=== PATIENT | male | born 1945 | race Caucasian/White ===

== ENCOUNTER → 2016-09-05 | Outpatient (CLI) | payer MEDICARE ==
[2016-09-04 10:03] LABS: HEMATOCRIT 21.3 % (37.9-51.0); MEAN CORPUSCULAR HEMOGLOBIN 31.6 pg (27.0-33.4); MEAN CORPUSCULAR HGB CONC 33.2 g/dL (32.0-36.0); MEAN CORPUSCULAR VOLUME 95 fl (80-97); RED BLOOD COUNT 2.24 10^6/uL (4.35-5.55); RED CELL DISTRIBUTION WIDTH 18.3 % (11.5-14.0)
[2016-09-04 10:41] LABS: BAND NEUTROPHILS % (MANUAL) 3 % (3-5); BASOPHILS % (MANUAL) 0 % (0-2); EOSINOPHILS % (MANUAL) 1 % (0-6); LYMPHOCYTES % (MANUAL) 6 % (13-45); TOTAL CELLS COUNTED 100
[2016-09-04 10:42] LABS: POLYCHROMASIA 1+; TOXIC GRANULATION 1+
[2016-09-04 10:43] LABS: ANISOCYTOSIS 1+
[2016-09-04 10:44] LABS: HEMOGLOBIN 7.1 g/dL (13.5-17.0)
== END ==
LOC: II 09-04 09:55 → LAB 09-04 09:55 → EDSTATUS 09-04 11:52 → II 11:52 → LAB 11:52
PROVIDERS: ATTEND Internal Medicine
DX: Z51.11 Encounter for antineoplastic chemotherapy (principal); C21.0 Malignant neoplasm of anus, unspecified
CPT/HCPCS: 85025

== ENCOUNTER → 2016-09-20 | Outpatient (CLI) | payer MEDICARE | LOC: OD 10:56 | PROVIDERS: ATTEND Specialist | DX: D64.9 Anemia, unspecified (principal) ==

== ENCOUNTER 2016-10-09 10:22 | Outpatient (CLI) | payer MEDICARE ==
[~2016-10-09 10:22] MED LIST: ACETAMINOPHEN 325 MG TABLET PO PRN; DIPHENHYDRAMINE HCL 25 MG CAPSULE PO PRN; FUROSEMIDE INJ/PF 20 MG/2 ML SDV IV PRN; NORMAL SALINE 1000 ML 1,000 ML IV PRN
[2016-10-09 10:53] LABS: HEMATOCRIT 24.6 % (37.9-51.0); HEMOGLOBIN 8.6 g/dL (13.5-17.0); HGB HCT DIFFERENCE 1.2; MEAN CORPUSCULAR HEMOGLOBIN 31.9 pg (27.0-33.4); MEAN CORPUSCULAR HGB CONC 34.9 g/dL (32.0-36.0); MEAN CORPUSCULAR VOLUME 91 fl (80-97); RED CELL DISTRIBUTION WIDTH 16.3 % (11.5-14.0); WHITE BLOOD COUNT 10.3 10^3/uL (4.0-10.5)
[2016-10-09 18:47] VITALS: BP 137/54
== END 2016-10-09 19:00 | disposition home or self-care (01) ==
LOC: II 10:22 → 2N 10:23 → II 19:00
PROVIDERS: ATTEND Specialist
PROC: 30233N1 Transfusion of Nonautologous Red Blood Cells into Peripheral Vein, Percutaneous Approach (ICD-10-PCS; principal; 2016-10-09)
DX: D64.9 Anemia, unspecified (principal); Z85.048 Personal history of other malignant neoplasm of rectum, rectosigmoid junction, and anus
CPT/HCPCS: 86900; 86901; 36415; 36430; 86850; 86920; P9016; A9270 ×2; J1940; J7030

== ENCOUNTER → 2016-12-15 | Outpatient (CLI) | payer MEDICARE ==
--- NOTE | 2016-12-15 15:24 | RADIOLOGY REPORT (SQ) ---
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 Axial images of the pelvis. FINDINGS: Patient completed radiotherapy in September 2015 for anal malignancy. We were unable to give IV contrast for today's study because of the patient's renal function. Prior MRI 07/26/2015 demonstrated a large anal lesion measuring 7 cm craniocaudad by 3.1 cm AP x 2.6 cm transverse, with diffuse wall thickening of the anal wall, up to 2 cm in thickness. On today's stud y, the bulk of the original tumor is significantly smaller. At the site of the thickest circumferent ial tumor on the pretreatment images, tumor thickness along the anal wall now measures 7 mm. In the area of prior treatment, the posterior wall of the anus and rectum is indistinct, and may be necrotic . Along the superior aspect of the radiation treatment field, there is some circumferential distal sigm oid/upper rectum wall thickening 1 cm in thickness, tumor recurrence in this area could not be exclud ed At the inferior aspect of the radiation field, there is an anal nodule along the anterior wall, 2 x 1 .2 cm in size which may represent tumor recurrence, best shown on axial image 26. There is loss of discrete fat planes between the distal sigmoid colon/rectum and the sacrum, with den se fibrosis which is dark on T1 and T2 weighted images. The adjacent sacrum exhibits abnormal decrea sed T1 and increased T2 marrow signal with few possible air bubbles present. Findings are worrisome for all radiation necrosis of the sacrum versus infection/osteomyelitis. There is extensive pelvic muscle edema, along the bilateral iliacus, bilateral piriformis, bilateral obturator internus and externus, and inferior aspect of the gluteal muscles. There is a new focus of bony sclerosis in the right symphysis pubis on axial image 18 which could be a bony sclerotic metastatic lesion. This measures 10 mm in diameter. No iliac chain adenopathy. Previously biopsied 2 cm right inguinal lymph node with biopsy clip is sl ightly larger than on biopsy imaging 06/23/2016. There is a Campbell catheter draining the bladder. Bladder is decompressed around a Campbell catheter. Pr ostate transitional zone is heterogeneous likely from hypertrophy. These results were discussed with Dr. Huerta IMPRESSION: Post therapeutic changes in the deep pelvis with decrease in tumor bulk along the anal/r ectal region as compared to 07/26/2015. However, there is now abnormal wall thickening and luminal azul rowing just superior to the treatment field in the distal sigmoid/rectum, and a small nodule at the a nal orifice worrisome for tumor recurrence. Indistinct posterior wall of the anus and rectum in the area of prior treatment. Adjacent fibrosis a nd decreased signal of the presacral fat with abnormal marrow signal in the adjacent sacrum. Finding s could either reflect radiation necrosis or infection Abnormal diffuse muscle edema New sclerotic focus in the right symphysis pubis worrisome for sclerotic bony metastatic lesion TECHNICAL DOCUMENTATION: JOB ID: [id number] [employer]- All Rights Reserved
== END ==
LOC: RAD 12-12 14:48
PROVIDERS: ATTEND Specialist
DX: C21.0 Malignant neoplasm of anus, unspecified (principal)
CPT/HCPCS: 72195

== ENCOUNTER → 2017-02-25 | Outpatient (CLI) | payer MEDICARE ==
--- NOTE | 2017-02-26 08:52 | RADIOLOGY REPORT (SQ) ---
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 RADIONUCLIDE AND DOSE: 12.0 mCi F18 FDG The route of agent administration: Intravenous FASTING BLOOD SUGAR: 138 mg/dl CONTRAST TYPE AND DOSE: No CT contrast given. TECHNIQUE: Blood glucose level was verified. Above dose of FDG was injected intravenously. 2-D seg mented attenuation correction images were obtained from the base of the skull to the midthighs. Nonc ontrast CT images were obtained for attenuation correction and fusion with emission images. CT image s were performed without oral or intravenous contrast and are not sensitive for parenchymal lesions. A series of overlapping emission PET images were obtained. Images reviewed and manipulated at [facility] work station by the radiologist. Images stored on PACS. LIMITATIONS: None. FINDINGS: HEAD AND NECK: No areas of abnormal metabolic activity in the soft tissues of the head and neck. CHEST: No areas of abnormal metabolic activity in the chest. ABDOMEN AND PELVIS: There is increasing circumferential soft tissue in the rectum with increasing sof t tissue in the presacral region. SUV values range from 5.91 to 7.13. There is gas extending mold mover iorly in the presacral space with local bony destruction of the adjacent distal sacrum. Right inguin al lymph node has increased in size and density, measuring 2 cm with mean SUV value 3.65. There is a central biopsy clip. PROXIMAL LOWER EXTREMITIES: No areas of abnormal metabolic activity in the soft tissues of the lower extremities. BONES: In addition to findings in the sacrum there is focal lytic change in the posterior L5 vertebra l body. Mean SUV value 5.93. ADDITIONAL CT FINDINGS: No additional significant findings on the noncontrast CT images. OTHER: No other significant findings. IMPRESSION: 1. EVIDENCE OF LOCAL RECURRENCE OF TUMOR IN THE LOWER RECTUM WITH SOFT TISSUE EXTENDING INTO THE PRES ACRAL SPACE. THERE IS AN AREA OF GAS EXTENDING INTO THE PRESACRAL SPACE WITH FOCAL DESTRUCTION OF TH E ADJACENT DISTAL SACRUM. THIS COULD REPRESENT PROGRESSIVE TUMOR WITH AREAS OF NECROSIS ALTHOUGH INF ECTIOUS ETIOLOGY WITH OSTEOMYELITIS IS NOT EXCLUDED. 2. LYTIC LESION IN THE POSTERIOR L5 VERTEBRAL BODY CONSISTENT WITH BONY METASTASIS. 3. RIGHT INGUINAL LYMPH NODE CONSISTENT WITH METASTATIC INVOLVEMENT. TECHNICAL DOCUMENTATION: JOB ID: [id number] [employer]- All Rights Reserved
== END ==
LOC: RAD 16:04
PROVIDERS: ATTEND Internal Medicine
DX: C21.0 Malignant neoplasm of anus, unspecified (principal)
CPT/HCPCS: 78815; A9552

== ENCOUNTER 2017-05-02 12:13 | Outpatient (CLI) | payer MEDICARE ==
[~2017-05-02 12:13] MED LIST changes: -NORMAL SALINE 1000 ML 1,000 ML IV PRN
[2017-05-02] MEDS ORDERED: NORMAL SALINE 250 ML IV PRN (12:47)
[2017-05-02 13:44] LABS: HEMATOCRIT 21.6 % (37.9-51.0); HGB HCT DIFFERENCE -0.9; MEAN CORPUSCULAR HEMOGLOBIN 30.6 pg (27.0-33.4); MEAN CORPUSCULAR VOLUME 96 fl (80-97); RED BLOOD COUNT 2.26 10^6/uL (4.35-5.55); RED CELL DISTRIBUTION WIDTH 17.8 % (11.5-14.0); WHITE BLOOD COUNT 21.1 10^3/uL (4.0-10.5)
[2017-05-02 14:06] LABS: HEMOGLOBIN 6.9 g/dL (13.5-17.0)
[2017-05-02 21:49] VITALS: BP 121/68
== END 2017-05-02 22:14 | disposition home or self-care (01) ==
LOC: II 12:13 → 2N 12:21 → II 22:14
PROVIDERS: ATTEND Internal Medicine Hematology & Oncology
PROC: 30243N1 Transfusion of Nonautologous Red Blood Cells into Central Vein, Percutaneous Approach (ICD-10-PCS; principal; 2017-05-02)
DX: D64.81 Anemia due to antineoplastic chemotherapy (principal)
CPT/HCPCS: 86900; 86901; 36415; 36430; 86850; 86920; P9016; A9270 ×2; J1940; 96374

== ENCOUNTER 2017-05-07 11:44 | Inpatient (IN) | payer MEDICARE ==
--- NOTE | 2017-05-07 11:53 | ER Document Report ---
ED General - General Mode of Arrival: Medic Information source: Patient, Emergency Med Personnel TRAVEL OUTSIDE OF THE [place] IN LAST 30 DAYS: No <LAURENCE JOE - Last Filed: 05/07/17 12:43> <JANNIE SOLIS - Last Filed: 05/07/17 14:00> - General Stated Complaint: GENERAL WEAKNESS Notes: Patient is a chronically ill 71-year-old male with a PMH significant for stage IV rectal cancer that presents to the emergency department today secondary to not eating/drinking in the last three days. EMS reports the patient's sister has elected to not give the patient any pain medications for the last three days secondary to the patient not eating/drinking anything. EMS reports the patient was hypotensive when they arrived at on scene (89/53). The patient was given two pints of blood 5 days ago my his heme/onc doctor. Pain complains of generalized pain but specifically mentions abdominal pain and rectal pain with associated shortness of breath. Patient denies any rectal bleeding or fevers. ( LAURENCE JOE) - Related Data Allergies/Adverse Reactions: Shellfish * [Shellfish] Allergy (Severe, Verified 05/07/17 12:37) Anaphylaxis amoxicillin [Amoxicillin] Adverse Reaction (Mild, Verified 05/07/17 12:37) rash Past Medical History - General Information source: Patient, Emergency Med Personnel, [facility] Records - Social History Smoking Status: Former Smoker Cigarette use (# per day): No Frequency of alcohol use: None Drug Abuse: None Lives with: Family Family History: Reviewed & Not Pertinent - Past Medical History Cardiac Medical History: Reports: Hx Hypertension - 2008 Pulmonary Medical History: Reports: Hx Pneumonia - as baby Endocrine Medical History: Reports: Hx Diabetes Mellitus Type 2 Malignancy Medical History: Reports Other - Stage IV rectal cancer Past Surgical History: Reports: Hx Cholecystectomy - Immunizations Hx Diphtheria, Pertussis, Tetanus Vaccination: No Hx Pneumococcal Vaccination: 07/23/08 <LAURENCE JOE - Last Filed: 05/07/17 12:43> Review of Systems - Review of Systems Constitutional: See HPI, Other - complains of generalized pain all over, including rectum. not eating/drinking for 3 days. denies: Fever EENT: No symptoms reported Cardiovascular: No symptoms reported Respiratory: See HPI, Short of breath Gastrointestinal: See HPI, Abdominal pain. denies: Rectal bleeding Genitourinary: No symptoms reported Male Genitourinary: No symptoms reported Musculoskeletal: No symptoms reported Skin: No symptoms reported Hematologic/Lymphatic: No symptoms reported Neurological/Psychological: No symptoms reported -: Yes All other systems reviewed and negative <HEATHLAURENCE - Last Filed: 05/07/17 12:43> Physical Exam <HEATHLAURENCE - Last Filed: 05/07/17 12:43> <JANNIE SOLIS - Last Filed: 05/07/17 14:00> - Vital signs Vitals: Resp 29 H 05/07/17 11:51 - Notes Notes: Physical Exam: General: Alert, appears chronically ill. Complains of pain all over, including rectum. HEENT: Normocephalic. Atraumatic. PERRL. Extraocular movements intact. Oropharynx clear. Dry mucous membranes. Neck: Supple. Non-tender. Respiratory: Slightly tachypneic. Clear and equal breath sounds bilaterally. Cardiovascular: Tachycardic in the 110s, regular rhythm. Abdominal: Complains of diffuse abdominal pain, no focal tenderness. No distension. Normal Bowel Sounds. Back: Non-tender. No deformity or step off. Extremities: Moves all four extremities. Upper extremities: Normal inspection. Normal ROM. Lower extremities: Atrophy in bilateral lower extremities Neurological: Normal cognition. AAOx4. Normal speech. Psychological: Normal affect. Normal Mood. Skin: Warm. Dry. Normal color. (LAURENCE JOE) Course - Laboratory Result Diagrams: 05/07/17 12:19 05/07/17 12:19 <HEATHLAURENCE - Last Filed: 05/07/17 12:43> - Laboratory Result Diagrams: 05/07/17 12:19 05/07/17 12:19 <JANNIE SOLIS - Last Filed: 05/07/17 14:00> - Re-evaluation Re-evalutation: 05/07/17 12:16 Weak, ill-appearing, 71-year-old male. He appears cachectic. He has a soft voice. Initial EKG shows sinus tachycardia at 112. The IA interval is 180, though the IA interval looks to be a little bit longer than that when reading the actual strip. He has slightly tall T waves. Patient received a blood transfusion recently. Basic labs are currently pending, including lactic acid. We will continue fluid resuscitation. He is received 500 mL's by EMS and we are adding an additional liter of fluid at this time. It is unclear if his poor appearing condition and weakness is due to possible anemia, metabolic issue , or infection. He is afebrile. 05/07/17 13:54 Patient continues to be weak, but does show some signs of improvement. He has family with him now. They are focused on his comfort, comfort care. I have explained to them the laboratory findings, the considerations for infectious disease versus dehydration, the acute renal failure that we are seeing. I have also called and spoke with Dr. Ricardo who will admit the patient to the hospital for ongoing care. There is a recognition that this patient is likely at the end of his life. (JANNIE SOLIS) - Vital Signs Vital signs: Temp Pulse Resp BP Pulse Ox 29 H 111/70 99 05/07/17 12:17 05/07/17 12:04 05/07/17 12:17 - Laboratory Laboratory results interpreted by me: 05/07/17 05/07/17 05/07/17 12:19 12:19 12:19 WBC 21.1 H RBC 3.25 L Hgb 10.4 L Hct 31.6 L RDW 16.2 H Seg Neuts % (Manual) 89 H Band Neutrophils % 7 H Lymphocytes % (Manual) 3 L Monocytes % (Manual) 1 L Abs Neuts (Manual) 20.3 H PT 21.8 H VBG pCO2 VBG HCO3 Sodium 135.9 L Potassium 5.2 H Carbon Dioxide 17 L BUN 81 H Creatinine 1.99 H Est GFR ( Amer) 41 L Est GFR (Non-Af Amer) 33 L Glucose 134 H Lactic Acid Total Bilirubin 1.7 H Direct Bilirubin 1.3 H Alkaline Phosphatase 131 H Total Protein 5.6 L Albumin 2.5 L 05/07/17 05/07/17 12:19 12:19 WBC RBC Hgb Hct RDW Seg Neuts % (Manual) Band Neutrophils % Lymphocytes % (Manual) Monocytes % (Manual) Abs Neuts (Manual) PT VBG pCO2 27.6 L VBG HCO3 17.1 L Sodium Potassium Carbon Dioxide BUN Creatinine Est GFR ( Amer) Est GFR (Non-Af Amer) Glucose Lactic Acid 2.4 H Total Bilirubin Direct Bilirubin Alkaline Phosphatase Total Protein Albumin Critical Care Note - Critical Care Note Total time excluding time spent on procedures (mins): 45 - Patient critically ill with tachycardia, weakness, leukocytosis, acute renal failure. Required fluid resuscitation, conversation with family in conversation with the patient' s primary physician. <JANNIE SOLIS - Last Filed: 05/07/17 14:00> Discharge <LAURENCE JOE - Last Filed: 05/07/17 12:43> - Discharge Admitting Provider: [facility] Unit Admitted: IMCU <JANNIE SOLIS - Last Filed: 05/07/17 14:00> - Discharge Clinical Impression: Acute kidney injury, Anal cancer, Weakness, Dehydration Condition: Poor Disposition: ADMITTED INPATIENT Scribe Documentation - Scribe Written by Scribe:: Dolores Calvo, 05/07/2017 1300 acting as scribe for :: Christie <LAURENCE JOE - Last Filed: 05/07/17 12:43>
[2017-05-07] MEDS ORDERED: NORMAL SALINE 1000 ML 1,000 ML IV ONE (12:01)
[2017-05-07 12:41] LABS: VENOUS BLOOD BASE EXCESS -6.2 mmol/L; VENOUS BLOOD HCO3 17.1 mmol/L (20-32); VENOUS BLOOD PCO2 27.6 mmHg (35-63); VENOUS BLOOD PH 7.41 (7.30-7.42)
[2017-05-07 12:45] LABS: PROTHROMBIN TIME 21.8 SEC (11.4-15.4)
[2017-05-07 12:46] LABS: HEMATOCRIT 31.6 % (37.9-51.0); HEMOGLOBIN 10.4 g/dL (13.5-17.0); HGB HCT DIFFERENCE -0.4; MEAN CORPUSCULAR HEMOGLOBIN 32.1 pg (27.0-33.4); MEAN CORPUSCULAR VOLUME 97 fl (80-97); RED BLOOD COUNT 3.25 10^6/uL (4.35-5.55); RED CELL DISTRIBUTION WIDTH 16.2 % (11.5-14.0); WHITE BLOOD COUNT 21.1 10^3/uL (4.0-10.5)
[2017-05-07 13:01] LABS: ALANINE AMINOTRANSFERASE 23 U/L (21-72); ALBUMIN 2.5 g/dL (3.5-5.0); ALKALINE PHOSPHATASE 131 U/L (38-126); ANION GAP 17 (5-19); ASPARTATE AMINO TRANSFERASE 35 U/L (17-59); BILIRUBIN,DIRECT 1.3 mg/dL (0.0-0.4); BILIRUBIN,TOTAL 1.7 mg/dL (0.2-1.3); BLOOD UREA NITROGEN 81 mg/dL (7-20); CARBON DIOXIDE 17 mmol/L (22-30); CHLORIDE 102 mmol/L (98-107); GLUCOSE 134 mg/dL (75-110); POTASSIUM 5.2 mmol/L (3.6-5.0); SODIUM 135.9 mmol/L (137-145); TOTAL PROTEIN 5.6 g/dL (6.3-8.2)
[2017-05-07 13:06] LABS: CREATININE RESULT 1.99 mg/dL (0.52-1.25)
[2017-05-07] MEDS ORDERED: PIPERACILLIN/TAZOBACTAM 3.375 GM VIAL IV ONE (13:07)
[2017-05-07 13:12] LABS: BAND NEUTROPHILS % (MANUAL) 7 % (3-5); BASOPHILS % (MANUAL) 0 % (0-2); EOSINOPHILS % (MANUAL) 0 % (0-6); LYMPHOCYTES % (MANUAL) 3 % (13-45); TOTAL CELLS COUNTED 100
[2017-05-07 13:14] LABS: ANISOCYTOSIS SLIGHT; POLYCHROMASIA SLIGHT; TOXIC GRANULATION 1+; TOXIC VACUOLATION PRESENT
--- NOTE | 2017-05-07 14:36 | RADIOLOGY REPORT (SQ) ---
EXAM DESCRIPTION: CHEST SINGLE VIEW COMPLETED DATE/TIME: 05/07/2017 2:25 pm REASON FOR STUDY: bed sepsis protocol COMPARISON: 06/30/2016 EXAM PARAMETERS: NUMBER OF VIEWS: One view. TECHNIQUE: Single frontal radiographic view of the chest acquired. RADIATION DOSE: NA LIMITATIONS: None. FINDINGS: LUNGS AND PLEURA: No opacities, masses or pneumothorax. No pleural effusion. MEDIASTINUM AND HILAR STRUCTURES: No masses. Contour normal. HEART AND VASCULAR STRUCTURES: Heart normal in size. Normal vasculature. BONES: No acute findings. HARDWARE: An injection port is present on the right. OTHER: No other significant finding. IMPRESSION: NO ACUTE RADIOGRAPHIC FINDING IN THE CHEST. TECHNICAL DOCUMENTATION: JOB ID: [id number]
[2017-05-07 14:43] LABS: APPEARANCE,URINE CLOUDY; BILIRUBIN,URINE NEGATIVE (NEGATIVE); GLUCOSE, URINE NEGATIVE (NEGATIVE); KETONES,URINE NEGATIVE (NEGATIVE); LEUKOCYTE ESTERASE,URINE LARGE (NEGATIVE); NITRITE,URINE NEGATIVE (NEGATIVE); PROTEIN,URINE NEGATIVE (NEGATIVE); URINE SPECIFIC GRAVITY 1.015
[2017-05-07] MEDS ORDERED: MORPHINE SULFATE 10 MG/ML INJ ONE (17:30)
--- NOTE | 2017-05-07 18:38 | EKG REPORT ---
SEVERITY:- ABNORMAL ECG - SINUS TACHYCARDIA LAD, CONSIDER LAFB OR INFERIOR INFARCT ANTERIOR INFARCT, AGE INDETERMINATE : Confirmed by: Damon Pinto 07-May-2017 18:37:24
[2017-05-07] MEDS: MORPHINE SULFATE 10 MG/ML INJ IV PRN ×2 (20:07→22:16)
--- NOTE | 2017-05-07 20:51 | PDOC H&P ---
History of Present Illness Admission Date/PCP: 05/07/17 14:12 MERLYN MARTÍNEZ MD History of Present Illness: HAILEE GALEANO is a very unfortunate 71 year old male,Patient is well-known to me this is a 11-year-old male with terminal cancer, he has a history of anal cancer that was treated with chemo therapy and radiation therapy, he came to the emergency room today for evaluation of Generalized body weakness for the last 3 days. In the emergency room he was found to have low blood pressure, severe leukocytosis. He had a PET scan on 02/25/2017, that showed increasing circumferential soft tissue in the rectum with increasing soft tissue in the presacral region there is gas extending posteriorly in the presacral space with local bony destruction of the adjacent distal sacrum. The right inguinal lymph node has increased in size and density the impression was that of evidence of local recurrence of tumor in the lower rectum with soft tissue extending into the presacral space there is an area of gas extending into the presacral space focal destruction of the adjacent distal sacrum also found was lytic lesion in the posterior L5 vertebral body. Patient is severely wasted,Moribund, family has opted for comfort care measures Past Medical History Cardiac Medical History: Reports: Hypertension - 2008 Pulmonary Medical History: Reports: Pneumonia - as baby Endocrine Medical History: Reports: Diabetes Mellitus Type 2 Malignancy Medical History: Reports: Other - Recurrent Stage IV anorectal cancer Musculoskeltal Medical History: Denies: Arthritis Hematology: Reports: Anemia Past Surgical History Past Surgical History: Reports: Cholecystectomy Denies: Pacemaker Social History Lives with: Family Smoking Status: Never Smoker Frequency of Alcohol Use: None Hx Recreational Drug Use: No Drugs: None Hx Prescription Drug Abuse: No - Advance Directive Resuscitation Status: Full Code Family History Family History: Reviewed & Not Pertinent Parental Family History Reviewed: Yes Children Family History Reviewed: Yes Sibling(s) Family History Reviewed.: Yes Medication/Allergy Home Medications: Amlodipine Besylate [Norvasc 10 mg Tablet] 10 mg PO DAILY 05/07/17 Aspirin [Aspirin 81 mg Chewable Tablet] 81 mg PO DAILY 05/07/17 Cyanocobalamin (Vitamin B-12) [Vitamin B-12 Inj 1000 Mcg/1 ml Vial] 1,000 mcg IM .MONTHLY 05/07/17 Ergocalciferol (Vitamin D2) [Vitamin D2] 50,000 unit PO .MONTHLY 05/07/17 Fenofibrate Nanocrystallized [Fenofibrate] 145 mg PO DAILY 05/07/17 Ferrous Sulfate [Feosol 325 mg Tablet] 325 mg PO DAILY 05/07/17 Levothyroxine Sodium [Synthroid] 50 mcg PO DAILY 05/07/17 Montelukast Sodium [Singulair 10 mg Tablet] 10 mg PO QHS 05/07/17 Pioglitazone HCl [Actos 15 mg Tablet] 1 tab PO DAILY 05/07/17 Simvastatin [Zocor 20 mg Tablet] 20 mg PO QHS 05/07/17 Tramadol HCl/Acetaminophen [Ultracet 37.5 mg/325 mg Tablet] 1 each PO Q6 Allergies/Adverse Reactions: Shellfish * [Shellfish] Allergy (Severe, Verified 05/07/17 12:37) Anaphylaxis amoxicillin [Amoxicillin] Adverse Reaction (Mild, Verified 05/07/17 12:37) rash Review of Systems ROS unobtainable: Due to mental status Physical Exam Vital Signs: Temp Pulse Resp BP Pulse Ox 98.6 F 122 H 16 108/54 L 91 L 05/07/17 19:56 05/07/17 19:56 05/07/17 19:56 05/07/17 19:56 05/07/17 19:56 Intake & Output 05/06/17 05/07/17 05/08/17 06:59 06:59 06:59 Intake Total 100 Balance 100 Weight 50.4 kg General appearance: PRESENT: other - Cachexia Respiratory exam: PRESENT: decreased breath sounds Cardiovascular exam: PRESENT: +S1, +S2 GI/Abdominal exam: PRESENT: soft Neurological exam: PRESENT: alert Results Laboratory Results: 05/07/17 17:10 Lactic Acid 2.7 H Impressions: Chest X-Ray 05/07/17 11:48 IMPRESSION: NO ACUTE RADIOGRAPHIC FINDING IN THE CHEST. 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
[2017-05-08] MEDS: MORPHINE SULFATE 10 MG/ML INJ IV PRN ×7 (02:30→20:44)
[2017-05-08] MEDS: NORMAL SALINE 1000 ML 1,000 ML IV PRN ×2 (02:58→12:43)
--- NOTE | 2017-05-08 12:28 | Physician Advisory Note ---
Physician Advisor ProgressNote .: Pursuant to the plan for [facility], I have reviewed the medical record for this patient. Physician Advisor Statement: Excellent documentation of plan for "comfort care", with hospice consult, DNR code status, & emphasis of tx on sx mgmt. Please consider documenting, to help support severity of illness: 1. "Acute Kidney Injury, likely due to ____" (intravascular volume depletion? sepsis? both?) 2. "Acute hyponatremia, likely due to intravascular volume depletion" 3. "underweight with severe protein-calorie malnutrition, with BMI 16.4, and loss of appetite and weight" [if possible, give specifics on intake, wt loss, loss of SQ fat & muscle mass, diminished hand railroad car repairman strength, & clinical importance such as delayed infxn clearance] 4. ?? - "UTI with possible sepsis present on admission, evidenced by hypotension w/MAP as low as 64, P/F ratio down to 286 without evidence of chronic respiratory problem, total bilirubin 1.7 (baseline normal @0.7 in June), MARISOL w/Cr 1.99, lactate >2 & rising, persistent tachycardia, frequent tachypnea, severe leukocytosis" - This depends on what you think about these factors' causes. If you feel the MARISOL & hypotension are due to volume depletion only instead, or the P/F ratio is just due to atelectasis or some other factor, the hyperbili is due to metas CA or something else, etc., just leave those out of the justification for possible sepsis, or leave out possible sepsis dx altogether if you don't think there is enough support for this dx from your clinical impression. Status: 71yo Medicare pt w/stage 4 rectal CA wit increasing soft tissue CA size and local bony destruction, HTN, DM-2, usually taking Norvasc to control BP, who has been so debilitated & malnourished to the extent that he had "atrophy in BLE 's", & who became so anemic 5 days before that he was transfused by oncologist. He had not been DNR prior to this stay. - presented to ED due to weakness after not eating/drinking x 3 days. Despite pain & lack of BP med, he was hypotensive, as low as 89/53 for EMS before starting IVF bolus. He had MARISOL with hyperkalemia and slightly peaked T waves on EKG, severe leukocytosis with lactate 2.4 & then 2.7 despite IV abx & IVF bolus in ED. He had acute hyponatremia, coagulopathy w/PT 21.8, hyperbilirubinemia that was new , low albumin of 2.5, (+)U/A. He came in w/HR 110s-120s, RR 16-29, BP 108/54, O2 sat 91% on RA for P/F ratio of 286. By 20:10, his breathing was, per nursing documentation, "labored", with accessory muscle use. It was quite clear at time of admission that he was in critically ill status, and would not be safe for d/c to home in <2MNs. He was felt to be nearing the end of his life, and family elected to go with comfort measures only. Attending accordingly ordered PRN morphine IV, no further abx, and consulted DCP for hospice referral. This patient did not appear to be actively dying at time of admission,, so attending's expectation would be for 2 MNs of acute hospital care, and Inpatient status was appropriately ordered. Since arrival, pt has needed prn IV morphine 5 times in less than 24 hours for pain control, which of course can drop BP further & worsen perfusion to kidneys & other organs, leading to further acute decompensation. He has evidence for UTI & possible sepsis; infection without abx will continue to worsen. He has persistent tachycardia & hypotension despite ongoing IVF. DCPlanner worked to arrange a transfer to Inpatient Hospice center in a timely manner, but noted at 11:09 on 05/08 that pt is "not stable enough to make transport at this time." Therefore, there will be no transfer that could prevent pt staying a 2nd MN. Therefore, pt has expectation of 2 MN of medically necessary care, & certainly has sufficient severity of illness, + intensity of service due to IV morphine needs. Appropriate for Inpt status. CK
--- NOTE | 2017-05-08 21:04 | PDOC PROGRESS REPORT ---
Subjective Progress Note for:: 05/08/17 Subjective:: He has terminal cancer on comfort care measures, sleeping comfortably. Physical Exam Vital Signs: Temp Pulse Resp BP Pulse Ox 97.6 F 103 H 16 106/71 97 05/08/17 19:39 05/08/17 19:39 05/08/17 19:39 05/08/17 19:39 05/08/17 19:39 Intake & Output 05/07/17 05/08/17 05/09/17 06:59 06:59 06:59 Intake Total 983 1058 Output Total 200 Balance 783 1058 Results Impressions: Chest X-Ray 05/07/17 11:48 IMPRESSION: NO ACUTE RADIOGRAPHIC FINDING IN THE CHEST. 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
[2017-05-09] MEDS: MORPHINE SULFATE 10 MG/ML INJ IV PRN ×11 (00:07→23:16)
[2017-05-09 13:02] VITALS: BP 93/47
--- NOTE | 2017-05-09 20:08 | PDOC PROGRESS REPORT ---
Subjective Progress Note for:: 05/09/17 Subjective:: He has terminal cancer on comfort care measures, sleeping comfortably. Physical Exam Vital Signs: Temp Pulse Resp BP Pulse Ox 97.6 F 123 H 16 93/47 L 97 05/08/17 19:39 05/09/17 14:00 05/09/17 12:00 05/09/17 12:00 05/08/17 19:39 Intake & Output 05/08/17 05/09/17 05/10/17 06:59 06:59 06:59 Intake Total 983 1118 120 Output Total 200 200 85 Balance 783 918 35 Results Impressions: Chest X-Ray 05/07/17 11:48 IMPRESSION: NO ACUTE RADIOGRAPHIC FINDING IN THE CHEST. 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
--- NOTE | 2017-05-10 21:20 | Death Summary ---
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 After discussion with family comfort care measures was preferred by family. He was treated with morphine for comfort and he this morning at 0021.
== END 2017-05-10 01:25 | DRG 683 ==
LOC: ER 11:44 → UNDOADMIN 14:12 → EH 14:12 → 3S 16:16 → EH 16:16 → 3S 16:53
PROVIDERS: ADMIT Internal Medicine; ATTEND Internal Medicine
DX: N17.9 Acute kidney failure, unspecified (principal); C21.8 Malignant neoplasm of overlapping sites of rectum, anus and anal canal; R64 Cachexia; Z68.1 Body mass index [BMI] 19.9 or less, adult; C77.4 Secondary and unspecified malignant neoplasm of inguinal and lower limb lymph nodes; Z66 Do not resuscitate; E11.9 Type 2 diabetes mellitus without complications; I95.9 Hypotension, unspecified; I10 Essential (primary) hypertension; D64.9 Anemia, unspecified; E86.0 Dehydration; Z90.49 Acquired absence of other specified parts of digestive tract; Z79.899 Other long term (current) drug therapy; Z88.0 Allergy status to penicillin; Z91.013 Allergy to seafood
CPT/HCPCS: 36415; 71010; 80053; 81001; 82803; 83605; 85025; 85610; 87040; 87086; 87088; 87186; 93005; 93010; 96361; 96365; 99291; J2270; J2543; J7030